=== PATIENT | female | born 1995 | race Caucasian/White ===

== ENCOUNTER 2017-07-19 00:03 | Outpatient (CLI) | payer OTHER | END 2017-07-19 00:04 | disposition critical access hospital (66) | LOC: EMS 00:03 | PROVIDERS: ATTEND Surgery | DX: R45.851 Suicidal ideations (principal); Z72.89 Other problems related to lifestyle | CPT/HCPCS: A0425; A0427 ==

== ENCOUNTER 2017-07-19 00:37 | Emergency (ER) | payer OTHER ==
--- NOTE | 2017-07-19 01:00 | ED Physician Documentation ---
PD HPI MHE - Stated complaint Stated Complaint: SI, ETOH - Chief complaint Chief Complaint: MHE - History obtained from History obtained from: Patient, Family, EMS - History of Present Illness Primary symptom: Suicidal ideation Pain level now: 0 Contributing factors: Sig other (boyfriend) Similar symptoms before: Has not had sx before Recently seen: Not recently seen - Additional information Additional information: brought in by ambulance, patient was drinking alcohol tonight and reportedly became sad and made vague suicidal statements (per medic report, "I don't want to be here anymore"). Patient is intoxicated on presentation and thus HPI is of uncertain reliability. She is vague and noncommittal when I ask if she is feeling suicidal (mostly answers "ok" to yes/no questions), although she then tells me earlier in the week she was holding a knife and contemplating hurting herself when a friend stopped her and took away the knife. Review of Systems Unable to obtain: Intoxicated PD PAST MEDICAL HISTORY - Past Medical History Past Medical History: No - Present Medications Home Medications: Ambulatory Orders Medication Instructions Recorded Confirmed Etonogestrel/Ethinyl Estradiol 1 vag ring 07/19/17 [Nuvaring Vaginal Ring] - Allergies Allergies/Adverse Reactions: Allergies Allergy/AdvReac Type Severity Reaction Status Date / Time No Known Drug Allergies Allergy Verified 07/19/17 00:50 PD ED PE NORMAL - Vitals Vital signs reviewed: Yes - General General: Alert and oriented X 3, No acute distress, Well developed/nourished, Other (speech is midly slurred but easily intelligible) - HEENT HEENT: PERRL, EOMI, Moist mucous membranes - Cardiac Cardiac: RRR, No murmur - Respiratory Respiratory: No respiratory distress, Clear bilaterally - Derm Derm: Normal color, Warm and dry, Other (no lacerations, abrasions, or injury to BUE) - Neuro Neuro: Alert and oriented X 3 PD ED PE EXPANDED - Psych Psych: Intoxicated / AOB, Withdrawn Results - Vitals Vitals: Vital Signs - 24 hr 07/19/17 07/19/17 00:46 07:36 Temperature 36.3 C L 37.0 C Heart Rate 97 97 Respiratory 20 14 Rate Blood Pressure 140/91 H 105/56 L O2 Saturation 100 100 Oxygen O2 Source Room air - Labs Labs: Laboratory Tests 0307/19/17 07/19/17 00:45 00:45 01:10 WBC 6.2 RBC 4.69 Hgb 14.1 Hct 41.1 MCV 87.7 MCH 30.0 MCHC 34.2 RDW 12.8 Plt Count 198 MPV 8.4 Neut # 3.4 Lymph # 2.3 [place] # 0.5 Eos # 0.0 Baso # 0.0 Absolute Nucleated RBC 0.00 Nucleated RBC % 0.0 Sodium Potassium Chloride Carbon Dioxide Anion Gap BUN Creatinine Estimated GFR (MDRD) Glucose Calcium Urine Color COLORLESS Urine Clarity CLEAR Urine pH 6.0 Ur Specific [place] <=1.005 Urine Protein NEGATIVE Urine Glucose (UA) NEGATIVE Urine Ketones NEGATIVE Urine Occult Blood NEGATIVE Urine Nitrite NEGATIVE Urine Bilirubin NEGATIVE Urine Urobilinogen 0.2 (NORMAL) Ur Leukocyte Esterase NEGATIVE Ur Microscopic Review NOT INDICATED Urine Culture Comments NOT INDICATED Urine HCG, Qual NEGATIVE Salicylates Urine Opiates Screen NEGATIVE Ur Oxycodone Screen NEGATIVE Urine Methadone Screen NEGATIVE Ur Propoxyphene Screen NEGATIVE Acetaminophen Ur Barbiturates Screen NEGATIVE Ur Tricyclics Screen NEGATIVE Ur Phencyclidine Scrn NEGATIVE Ur Amphetamine Screen NEGATIVE U Methamphetamines Scrn NEGATIVE U Benzodiazepines Scrn NEGATIVE Urine Cocaine Screen NEGATIVE U Cannabinoids Screen NEGATIVE Ethyl Alcohol 07/19/17 01:10 WBC RBC Hgb Hct MCV MCH MCHC RDW Plt Count MPV Neut # Lymph # [place] # Eos # Baso # Absolute Nucleated RBC Nucleated RBC % Sodium 140 Potassium 3.6 Chloride 108 Carbon Dioxide 23 Anion Gap 9.0 BUN 15 Creatinine 0.9 Estimated GFR (MDRD) 78 L Glucose 104 H Calcium 8.7 Urine Color Urine Clarity Urine pH Ur Specific [place] Urine Protein Urine Glucose (UA) Urine Ketones Urine Occult Blood Urine Nitrite Urine Bilirubin Urine Urobilinogen Ur Leukocyte Esterase Ur Microscopic Review Urine Culture Comments Urine HCG, Qual Salicylates < 6.0 Urine Opiates Screen Ur Oxycodone Screen Urine Methadone Screen Ur Propoxyphene Screen Acetaminophen < 10 L Ur Barbiturates Screen Ur Tricyclics Screen Ur Phencyclidine Scrn Ur Amphetamine Screen U Methamphetamines Scrn U Benzodiazepines Scrn Urine Cocaine Screen U Cannabinoids Screen Ethyl Alcohol 225.9 PD MEDICAL DECISION MAKING - ED course Complexity details: considered differential, d/w patient, d/w family (mother of patient is at bedside during H+P) ED course: Patient signed out to Dr. Dover at 7 AM, as patient was not yet medically cleared (intoxicated) for reevaluation and then SW consult
[2017-07-19 01:15] LABS: MUDS CUTOFF CONCENTRATIONS CUTOFF CONC BELOW:
[2017-07-19 01:19] LABS: BASOPHILS % (AUTO) 0.4 %; EOSINOPHILS % (AUTO) 0.5 %; HGB - HEMOGLOBIN 14.1 g/dL (12.0-16.0); LYMPHOCYTES # (AUTO) 2.3 10^3/uL (1.5-3.5); LYMPHOCYTES % (AUTO) 37.4 %; MEAN CORPUSCULAR HGB CONC 34.2 g/dL (32.0-36.0); MEAN CORPUSCULAR VOLUME 87.7 fL (81.0-99.0); MEAN PLATELET VOLUME 8.4 fL (7.9-10.8); MONOCYTES # (AUTO) 0.5 10^3/uL (0.0-1.0); MONOCYTES % (AUTO) 7.9 %; NEUTROPHILS # (AUTO) 3.4 10^3/uL (1.5-6.6); NEUTROPHILS % (AUTO) 53.8 %; PLT - PLATELET COUNT 198 10^3/uL (130-450); RED BLOOD COUNT 4.69 10^6/uL (4.20-5.40); RED CELL DISTRIBUTION WIDTH 12.8 % (12.0-15.0); WHITE BLOOD COUNT 6.2 x10^3/uL (4.8-10.8)
[2017-07-19 01:20] LABS: BILIRUBIN,URINE NEGATIVE (NEGATIVE); GLUCOSE, URINE (UA) NEGATIVE (NEGATIVE); KETONES,URINE (UA) NEGATIVE (NEGATIVE); LEUKOCYTE ESTERASE, URINE NEGATIVE (NEGATIVE); NITRITE,URINE NEGATIVE (NEGATIVE); OCCULT BLOOD,URINE NEGATIVE (NEGATIVE); PROTEIN,URINE NEGATIVE (NEGATIVE); UROBILINOGEN,URINE 0.2 (NORMAL) E.U./dL (NORMAL)
[2017-07-19 01:22] LABS: CLARITY,URINE CLEAR (CLEAR); HCG UR QUAL NEGATIVE
[2017-07-19 01:28] LABS: BUN - BLOOD UREA NITROGEN 15 mg/dL (6-20); CALCIUM 8.7 mg/dL (8.5-10.3); CARBON DIOXIDE - CO2 23 mmol/L (21-32); CHLORIDE 108 mmol/L (101-111); CREATININE 0.9 mg/dL (0.4-1.0); GFR - MDRD 78 (>89); GLUCOSE 104 mg/dL (70-100); SALICYLATE < 6.0 mg/dL; SODIUM 140 mmol/L (135-145)
[2017-07-19 01:29] LABS: ACETAMINOPHEN < 10 ug/mL (10-30)
[2017-07-19 01:50] LABS: AMPHETAMINE SCREEN,URINE NEGATIVE (NEGATIVE); BENZODIAZEPINES SCREEN, URINE NEGATIVE (NEGATIVE); COCAINE SCREEN URINE NEGATIVE (NEGATIVE); METHADONE SCREEN, URINE NEGATIVE (NEGATIVE); METHAMPHETAMINES SCREEN, URINE NEGATIVE (NEGATIVE); OPIATE SCREEN, URINE NEGATIVE (NEGATIVE); OXYCODONE SCREEN, URINE NEGATIVE (NEGATIVE); PROPOXYPHENE SCREEN, URINE NEGATIVE (NEGATIVE); TRICYCLIC ANTIDEPRESSANT,URINE NEGATIVE (NEGATIVE)
[2017-07-19] MEDS ORDERED: ONDANSETRON ODT 4 MG TABLET TL STA (07:40)
[2017-07-19] MEDS ORDERED: IBUPROFEN 400 MG TABLET PO STA (07:40)
--- NOTE | 2017-07-19 07:40 | ED Physician Documentation ---
History of Present Illness - Stated complaint Stated Complaint: SI, ETOH - Chief complaint Chief Complaint: MHE PD PAST MEDICAL HISTORY - Past Medical History Past Medical History: Yes Cardiovascular: Arrhythmia Respiratory: Other Psych: Depression, Anxiety - Past Surgical History Past Surgical History: Yes - Present Medications Home Medications: Ambulatory Orders Medication Instructions Recorded Confirmed Etonogestrel/Ethinyl Estradiol 1 vag ring 07/19/17 [Nuvaring Vaginal Ring] - Allergies Allergies/Adverse Reactions: Allergies Allergy/AdvReac Type Severity Reaction Status Date / Time No Known Drug Allergies Allergy Verified 07/19/17 00:50 - Social History Does the pt smoke?: No Smoking Status: Never smoker Does the pt drink ETOH?: Yes ETOH Use: Wine, Beer, Liquor Does the pt have substance abuse?: No - Immunizations Immunizations are current?: Yes Results - Vitals Vitals: Vital Signs - 24 hr 07/19/17 07/19/17 00:46 07:36 Temperature 36.3 C L 37.0 C Heart Rate 97 97 Respiratory 20 14 Rate Blood Pressure 140/91 H 105/56 L O2 Saturation 100 100 Oxygen O2 Source Room air - Labs Labs: Laboratory Tests 07/19/17 07/19/17 07/19/17 00:45 00:45 01:10 WBC 6.2 RBC 4.69 Hgb 14.1 Hct 41.1 MCV 87.7 MCH 30.0 MCHC 34.2 RDW 12.8 Plt Count 198 MPV 8.4 Neut # 3.4 Lymph # 2.3 [place] # 0.5 Eos # 0.0 Baso # 0.0 Absolute Nucleated RBC 0.00 Nucleated RBC % 0.0 Sodium Potassium Chloride Carbon Dioxide Anion Gap BUN Creatinine Estimated GFR (MDRD) Glucose Calcium Urine Color COLORLESS Urine Clarity CLEAR Urine pH 6.0 Ur Specific [place] <=1.005 Urine Protein NEGATIVE Urine Glucose (UA) NEGATIVE Urine Ketones NEGATIVE Urine Occult Blood NEGATIVE Urine Nitrite NEGATIVE Urine Bilirubin NEGATIVE Urine Urobilinogen 0.2 (NORMAL) Ur Leukocyte Esterase NEGATIVE Ur Microscopic Review NOT INDICATED Urine Culture Comments NOT INDICATED Urine HCG, Qual NEGATIVE Salicylates Urine Opiates Screen NEGATIVE Ur Oxycodone Screen NEGATIVE Urine Methadone Screen NEGATIVE Ur Propoxyphene Screen NEGATIVE Acetaminophen Ur Barbiturates Screen NEGATIVE Ur Tricyclics Screen NEGATIVE Ur Phencyclidine Scrn NEGATIVE Ur Amphetamine Screen NEGATIVE U Methamphetamines Scrn NEGATIVE U Benzodiazepines Scrn NEGATIVE Urine Cocaine Screen NEGATIVE U Cannabinoids Screen NEGATIVE Ethyl Alcohol 07/19/17 07/19/17 07/19/17 01:10 07:55 10:08 WBC RBC Hgb Hct MCV MCH MCHC RDW Plt Count MPV Neut # Lymph # [place] # Eos # Baso # Absolute Nucleated RBC Nucleated RBC % Sodium 140 Potassium 3.6 Chloride 108 Carbon Dioxide 23 Anion Gap 9.0 BUN 15 Creatinine 0.9 Estimated GFR (MDRD) 78 L Glucose 104 H Calcium 8.7 Urine Color Urine Clarity Urine pH Ur Specific [place] Urine Protein Urine Glucose (UA) Urine Ketones Urine Occult Blood Urine Nitrite Urine Bilirubin Urine Urobilinogen Ur Leukocyte Esterase Ur Microscopic Review Urine Culture Comments Urine HCG, Qual Salicylates < 6.0 Urine Opiates Screen Ur Oxycodone Screen Urine Methadone Screen Ur Propoxyphene Screen Acetaminophen < 10 L Ur Barbiturates Screen Ur Tricyclics Screen Ur Phencyclidine Scrn Ur Amphetamine Screen U Methamphetamines Scrn U Benzodiazepines Scrn Urine Cocaine Screen U Cannabinoids Screen Ethyl Alcohol 225.9 119.1 68.0 PD MEDICAL DECISION MAKING - ED course ED course: assumed care [address] Helton note in summary 22 f BIBA last night intoxicated after having made suicidal statements pt also told Dr Helton that she had considered suicide earlier this week and that she was still suicidal while in the ED pt denies trauma fall no recent illness but this AM she has a OCONNELL and is nauseated likely 2/2 EtOH last night denies preg exam VS noted awake, talking but not making eye contact RRR CTAB will give motrin and zofran and encourage PO fluids and breakfast rpt BA at 8AMthen SW consult family at bedside as pt became more awake she realized her back hurt - exam shows large brusie over approx L3 and left lower lumabr region soft tissue, focal bony TTP as well - pt thinks she must have fallen though does not recall - re-examine - head atraumatic PERRL, C spine and T spine NT, abd soft NT, no ext pain TTP or deformity, MSV intact L spine xray no fx no sublux seen by SW who feels pt safe to go home with family and resources - see her note Departure - Departure Disposition: 01 Home, Self Care Clinical Impression: Suicidal ideation Alcohol intoxication Qualifiers: Complication of substance-induced condition: uncomplicated Qualified Code(s): F10.920 - Alcohol use, unspecified with intoxication, uncomplicated Back contusion Qualifiers: Encounter type: initial encounter Laterality: unspecified laterality Qualified Code(s): S20.229A - Contusion of unspecified back wall of thorax, initial encounter Condition: Good Instructions: ED Contusion Back, ED Depression, ED Alcohol Intoxication Comments: The xray did not show any fracture Your labs were fine The social worker school has evaluated you and does not feel you a danger to yourself or others and are safe to go home with your family to follow up for outpatient counseling Forms: Activity restrictions
--- NOTE | 2017-07-19 11:11 | XRAY Report ---
EXAM: LUMBOSACRAL SPINE RADIOGRAPHY EXAM DATE: 07/19/2017 10:41 AM. CLINICAL HISTORY: Fall bruise focal pain approximately L3. COMPARISONS: None. TECHNIQUE: 2 views. FINDINGS: Alignment: Minimal right convex lumbar spine curvature. No subluxation. Bones: Five [id number] lumbar vertebral bodies are present. No fractures or bone lesions. Disks: Normal. Disk heights are maintained. Facets: No degenerative changes. Sacroiliac Joints: Unremarkable. Hips: Incompletely visualized, but femoral heads appear slightly uncovered laterally suggesting mild bilateral acetabular dysplasia. Soft Tissues: Normal. The visualized bowel gas pattern is normal. IMPRESSION: 1. No fracture or subluxation in the lumbar spine. 2. Mild bilateral hip dysplasia. [facility] Referring Provider Line: [phone] SITE ID: [id number]
[2017-07-19 12:08] VITALS: BP 139/101
== END 2017-07-19 12:06 | disposition home or self-care (01) ==
LOC: EDUNIT# → ED 00:37
DX: R45.851 Suicidal ideations (principal); F10.920 Alcohol use, unspecified with intoxication, uncomplicated; S20.229A Contusion of unspecified back wall of thorax, initial encounter; X58.XXXA Exposure to other specified factors, initial encounter
CPT/HCPCS: 36415; 72100; 80048; 80306; 80307; 80320; 80329; 81003; 81025; 85025; 99283; 99284; A9270; Q0162; 81001; 87086